=== PATIENT | female | born 1990 ===

== ENCOUNTER 2016-09-24 22:35 | Emergency (ER) | payer OTHER ==
[~2016-09-24 22:35] MED LIST: BENADRYL25 M3 PO; IBUPROFEN800 M1 PO; NORCO 5-325 TA1 EACH PO; PRENATAL DHA PO
[2016-09-24] MEDS ORDERED: FOCALIN XR20 M1 PO (23:08)
[2016-09-24] MEDS ORDERED: FOLTANX TABLET1 EACH PO (23:09)
[2016-09-24] MEDS ORDERED: LAMICTAL100 M2 PO (23:09)
[2016-09-24] MEDS ORDERED: MUCINEX600 M1 PO (23:09)
[2016-09-24] MEDS ORDERED: ZYRTEC10 M7 PO (23:10)
[2016-09-24] MEDS ORDERED: STRATTERA25 MG/CAP PO (23:10)
[2016-09-24] MEDS ORDERED: CEFDINIR300 M1 PO (23:52)
== END 2016-09-25 00:04 ==
LOC: EDMED 22:35
DX: H66.92 Otitis media, unspecified, left ear (principal); Z98.890 Other specified postprocedural states